=== PATIENT | male | born 1975 | race Native Hawaiian/Other Pacific Islander ===

== ENCOUNTER 2020-10-18 08:39 | Outpatient (CLI) | payer OTHER | END 2020-10-18 19:24 | disposition home or self-care (01) | LOC: NM 08:39 | PROVIDERS: ATTEND Student in an Organized Health Care Education/Training Program | DX: I10 Essential (primary) hypertension (principal); L89.893 Pressure ulcer of other site, stage 3; L97.529 Non-pressure chronic ulcer of other part of left foot with unspecified severity; E11.621 Type 2 diabetes mellitus with foot ulcer | CPT/HCPCS: A9561 ==